=== PATIENT | female | born 1960 | race Caucasian/White ===

== ENCOUNTER 2018-02-11 06:02 | Observation (INO) | payer OTHER ==
[2018-02-11] MEDS ORDERED: LACTATED RINGERS 1,000 ML IV.SOLN IV ONE (08:48)
[2018-02-11] MEDS ORDERED: MORPHINE SULFATE 10 MG/ML VIAL ONE (08:48)
[2018-02-11] MEDS ORDERED: SUCCINYLCHOLINE CHLORIDE 20 MG/ML 10ML VIAL ONE (08:48)
[2018-02-11] MEDS ORDERED: PROPOFOL 200 MG/20 ML VIAL IV ONE (08:48)
[2018-02-11] MEDS ORDERED: ePHEDrine SULFATE 50 MG/1 ML IVP ONE (08:48)
[2018-02-11] MEDS ORDERED: FENTANYL 250MCG/5ML VIAL ONE (08:48)
[2018-02-11] MEDS ORDERED: MIDAZOLAM HCL 2 MG/2 ML VIAL ONE (08:48)
[2018-02-11] MEDS ORDERED: LIDOCAINE HCL/PF 2% 100 MG/5 ML VIAL IJ ONE (08:48)
[2018-02-11] MEDS ORDERED: ONDANSETRON HCL/PF 4 MG/ 2ML VIAL ONE (08:48)
[2018-02-11] MEDS ORDERED: ceFAZolin SODIUM 1 GM VIAL ONE (08:48)
[2018-02-11] MEDS ORDERED: MORPHINE SULFATE 4 MG/ML PREFILLED SYR IVP PRN (12:30)
[2018-02-11] MEDS ORDERED: HYDROmorphone HCL 2 MG TABLET PO PRN (12:30)
[2018-02-11] MEDS ORDERED: LEVALBUTEROL HCL 1.25 MG/3 ML AMPUL.NEB NEB PRN (12:30)
[2018-02-11] MEDS ORDERED: KETOROLAC TROMETHAMINE 30 MG/1ML VIAL IVP PRN (12:30)
[2018-02-11] MEDS ORDERED: ONDANSETRON HCL/PF 4 MG/ 2ML VIAL IVP PRN (12:30)
[2018-02-11] MEDS ORDERED: PROMETHAZINE HCL 25 MG in 0.9 % SODIUM CHLORIDE 50 ML IV PRN (12:30)
[2018-02-11] MEDS ORDERED: fentaNYL CITRATE/PF 100 MCG/ 2ML AMP IVP PRN ×2 (12:30)
[2018-02-11] MEDS ORDERED: oxyCODONE HCL 5 MG TABLET PO PRN (12:30)
[2018-02-11] MEDS ORDERED: ACETAMINOPHEN 500 MG TABLET PO PRN (12:30)
[2018-02-11] MEDS ORDERED: diphenhydrAMINE HCL 25 MG TABLET PO PRN (12:30)
[2018-02-11] MEDS ORDERED: DIAZEPAM 5 MG TABLET PO PRN (12:30)
[2018-02-11] MEDS ORDERED: NICOTINE 14mg PATCH.TD24 TD SCH (13:00)
[2018-02-11] MEDS ORDERED: LORATADINE 10 MG TABLET PO PRN (13:09)
[2018-02-11 13:16] VITALS: BMI 71.9
[2018-02-11] MEDS: 0.9 % SODIUM CHLORIDE 1,000 ML IV SCH ×2 (13:18→20:29)
--- NOTE | 2018-02-11 13:29 | History and Physical Report ---
History of Present Illnes - History of Present Illness Reason for Visit: TDR of C5/6 and C6/7 History of Present Illness: Patient is a 57-year-old white female that underwent a Cervical Total Disc Replacement of mina C5/6, mina C6/7 today. She has a history of chronic left cervical radiculopathy for more than 5 years. She has experienced headaches and daily light flashes that occurred in the corner of either eye. Patient was not reported to have any intraoperative complications. Patient is admitted for post operative care- we will get her up and walking to prevent DVT, she will use Incentive Spirometer to prevent resp. illnesses, and will advance diet as tolerated. - Past Medical History Cardiac: denies: CHF, HTN Pulmonary: Asthma, Sleep Apnea (noted during surgery) CLASSROOM MONITOR: Migraine, Seizure Gastrointestinal: denies: GI bleed, Peptic ulcer disease Heme/Onc: denies: Anemia NOS Hepatobiliary: denies: Hep A/B/C Psych: Anxiety, Depression Musculoskeletal: Other (MS/ chronic neck pain) Rheumatologic: denies: Rheumatoid arthritis Infectious Disease: Other (Hx of MRSA) ENT: denies: Sinusitis Renal/: denies: Acute renal failure Endocrine: Diabetes, obesity Dermatology: denies: Cellulitis, Psoriasis - Past Surgical History Past Surgical History: Hysterectomy, Other (Bladder mesh) - Past Family History Mother Family History: DM Father Family History: DM Sister 1 Family History: Cancer (colon) Sister 2 Family History: Cancer (Ovarian) - Past Social History Smoke: No Occupation: Disabled Alcohol: None Drugs: None Lives: With Family Domestic Violence: Negative - Health Maintenance Health Maintenance: Tetanus, Pneumococcal Vaccine (Thinks she had one). denies: Influenza Vaccine Influenza Vaccine: No Pneumonia Vaccine: Yes (Patient thinks that she has had vaccine) Resuscitation Status: Resusciation Status Resuscitation Status Full Code - Unable to Obtain History Unable to Obtain: No Review of Systems - Review of Systems Constitutional: negative: Fever, Chills Eyes: negative: pain, redness ENT: negative: Ear Pain, Ear Discharge, Throat Pain Respiratory: negative: Cough, Shortness of Breath Cardiovascular: negative: Chest Pain Gastrointestinal: negative: Nausea, Vomiting Genitourinary: negative: Dysuria Musculoskeletal: Neck Pain. negative: Arm Pain Skin: negative: Rash Neurological: negative: Change in Speech, Confusion - Medications/Allergies Allergies/Adverse Reactions: Allergies Allergy/AdvReac Type Severity Reaction Status Date / Time aripiprazole [From Abilify] Allergy Verified 02/11/18 12:23 methylprednisolone Allergy Verified 02/11/18 12:23 [From Depo-Medrol] pregabalin [From Lyrica] Allergy Verified 02/11/18 12:23 jordan Allergy Uncoded 02/11/18 12:23 Home Medications: Home Medications Albuterol Sulfate [Proair HFA] 2 inh IH Q4 PRN 02/11/18 Carbamazepine [Tegretol] 200 mg PO BID 02/11/18 Fluoxetine HCl [Prozac] 40 mg PO BID 02/11/18 Fluticasone Propionate [Flonase Nasal [place]] 1 spray NS DAILY 02/11/18 Hydrocodone Bit/Acetaminophen [Lortab] 10 mg PO 6XDAY PRN 02/11/18 Insulin Aspart [Novolog] 1 unit SQ TID 02/11/18 Insulin Glargine,Hum.rec.anlog [Lantus] 55 unit SQ DAILY 02/11/18 LORazepam [Ativan] 1 mg PO TID PRN 02/11/18 Loratadine 10 mg PO DAILY 02/11/18 Metformin HCl 1,000 mg PO BID 02/11/18 Naproxen 500 mg PO BID 02/11/18 Simvastatin 40 mg PO DAILY 02/11/18 Topiramate [Topamax] 100 mg PO BID 02/11/18 clonazePAM [Klonopin] 3 mg PO TID 02/11/18 Current Inpatient Medications: Current Inpatient Medications Acetaminophen (Tylenol Extra Strength) 500 mg PO Q4 PRN PRN Reason: for mild pain 1-4/fever Carbamazepine (Tegretol) 200 mg PO BID LANNY Diazepam (Valium) 5 mg PO Q8H PRN PRN Reason: Anxiety/muscle spasm Diphenhydramine HCl (Benadryl) 25 mg PO Q4 PRN PRN Reason: Itching or Pruritis Fentanyl Citrate (Duragesic) 50 mcg IVP Q2H PRN PRN Reason: Moderate pain 5-7 Stop: 02/12/18 12:29 Fentanyl Citrate (Duragesic) 100 mcg IVP Q2H PRN PRN Reason: For Severe Pain 8-10 Stop: 02/12/18 12:29 Fluoxetine HCl (Prozac) 40 mg PO BID LANNY Heparin Sodium (Porcine) (Heparin) 5,000 unit SQ Q12 [facility] Hydromorphone HCl (Dilaudid) 4 mg PO Q4H PRN PRN Reason: Severe Pain 8-10 Stop: 02/12/18 12:29 Sodium Chloride (Normal Saline) 1,000 mls @ 150 mls/hr IV Q10H LANNY Stop: 02/12/18 12:29 Promethazine HCl 25 mg/ Sodium (Chloride) 51 mls @ 200 mls/hr IV Q6 PRN PRN Reason: Nausea / Vomiting Stop: 02/15/18 12:29 Insulin Detemir (Levemir Flex-Pen) 55 unit SQ HS [facility] Insulin Human Regular (Humulin R) 0 unit SQ CHEMQID [facility]; Protocol Ketorolac Tromethamine (Toradol) 15 mg IVP Q6 PRN PRN Reason: For Mild Pain 1-4 Stop: 02/15/18 12:29 Levalbuterol HCl (Xopenex) 1.25 mg NEB Q4 PRN PRN Reason: SOA, Dyspnea, or Wheezing Stop: 02/15/18 12:29 Loratadine (Claritin) 10 mg PO DAILY PRN PRN Reason: Allergy Symptoms Metformin HCl (Glucophage) 1,000 [place] [id number] [facility] Miscellaneous (Chem Sticks) 1 each MC Q6H [facility] Morphine Sulfate (Depodur) 4 mg IVP Q2 PRN PRN Reason: For Severe Pain 8-10 Stop: 02/12/18 12:29 Nicotine (Habitrol 14mg) 1 patch TD DAILY [facility] Ondansetron HCl (Zofran 4 Mg/2 Ml) 4 mg IVP Q6H PRN PRN Reason: Nausea / Vomiting Stop: 02/15/18 12:29 Oxycodone HCl (Percolone) 10 mg PO Q4 PRN PRN Reason: For Moderate Pain 5-7 Oxycodone/Acetaminophen (Percocet 5-325 Mg Tablet) 1 each PO Q4 PRN PRN Reason: For pain 1-4 out of 10 Oxycodone/Acetaminophen (Percocet 5-325 Mg Tablet) 2 each PO Q4 PRN PRN Reason: Moderate pain 5-7 Simvastatin (Zocor) 40 mg PO HS [facility] Topiramate (Topamax) 100 mg PO BID [facility] Exam - Exam Vital Signs: Vital Signs (72 hours) 02/11/18 12:28 Temperature 96.3 F L Pulse Rate [ 108 H Apical] Respiratory 20 Rate Blood Pressure 142/74 [Left Arm] O2 Sat by Pulse 90 L Oximetry General: Alert, Oriented to Person, Oriented to Place, Oriented to Time, Cooperative, No acute distress HEENT: Atraumatic, PERRLA, Mouth Mucous membr. moist/[place] Neck: Other (s/p TDR of C 5/6 & C6/7- C collar on (soft)). No: Normal Range of Motion Lungs: Clear to auscultation, Normal air movement, Speaks full Sentences Cardiovascular: Regular rate, Normal S1, Normal S2 Peripheral Pulses: 2+ radial 2+ pedal Abdomen: Normal bowel sounds, Soft, No tenderness Integumentary: Normal, Warm, Dry, Other (incision to anterior neck) Extremities: No cyanosis, Normal pulses, No tenderness/swelling Neurological: Normal speech, Strength Equal Bilat, Sensation intact Psych/Mental Status: Appropriate Affect Assessment/Plan - Assessment/Plan (1) Status post cervical disc replacement Status: Acute Current Visit: Yes Assessment: Patient has dressing to the anterior neck with support of C- Collar Patient is able to speak a short full sentence- no difficulty swallowing Patient has strong equal manager radiation Patient able to move both lower extremities Plan: Patient is to wear C-collar when she is up and about (per Dr. 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 Diabetes mellitus complication status: without complication Qualified Code(s): E11.9 - Type 2 diabetes mellitus without complications Assessment: Patient has not shown any sx's of hypo/hyperglycemic episode- we will monitor blood sugars Plan: Will monitor blood sugars every 6 hours Patient will be on sliding scale insulin- will continue with long acting insulin and monitor blood sugars (3) Asthma Status: Acute Current Visit: Yes Qualifiers: Asthma severity: mild Asthma persistence: intermittent Asthma complication type: unspecified Qualified Code(s): J45.20 - Mild intermittent asthma, uncomplicated Assessment: Patient is no acute distress, respirations are regular, even, unlabored. Lungs are clear. Plan: Will monitor patient resp. status by checking pulse ox, getting patient up and walking, and using IS. Xopenox and oxygen are ordered. VTE Assessment - RISK FACTOR SCORE VTE RISK FACTOR SCORES: AGE 40-60 YEARS, MAJOR SURGERY/ANESTHESIA TIME > 1 HOUR (pt on heparin)
[2018-02-11] MEDS: oxyCODONE/ACETAMINOPHEN 5/325 TABLET PO PRN ×2 (15:41→21:31)
[2018-02-11] MEDS: INSULIN REGULAR, HUMAN 100 UNIT/ML 3ML VIAL SQ SCH ×2 (16:36→21:30)
[2018-02-11] MEDS ORDERED: INSULIN DETEMIR 100 UNIT/ML 3ML PEN.INJCTR SQ SCH ×2 (21:00)
[2018-02-11] MEDS ORDERED: INSULIN GLARGINE,HUM.REC.ANLOG 100 UNIT/ML PEN.INJCTR SQ SCH (21:00)
[2018-02-11] MEDS ORDERED: SIMVASTATIN 40 MG TABLET PO SCH (21:00)
[2018-02-11] MEDS: HEPARIN SODIUM 5000 UNIT/1 ML SQ SCH (21:30)
[2018-02-11] MEDS: FLUoxetine HCL 10 MG CAPSULE PO SCH (21:31)
[2018-02-11] MEDS: CARBAMAZEPINE 200 MG TABLET PO SCH (21:31)
[2018-02-11] MEDS: TOPIRAMATE 50 MG TABLET PO SCH (21:31)
[2018-02-12] MEDS: oxyCODONE/ACETAMINOPHEN 5/325 TABLET PO PRN ×3 (01:21→09:51)
--- NOTE | 2018-02-12 07:34 | Discharge Summary ---
Discharge Summary - Discharge Sumary History of Present Illness: Reason for Visit: TDR of 5/6 and C6/7 History of Present Illness: Patient is a 57-year-old white female that underwent a Cervical Total Disc Replacement of mina C5/6, mina C6/7 today. She has a history of chronic left cervical radiculopathy for more than 5 years. She has experienced headaches and daily light flashes that occurred in the corner of either eye. Patient was not reported to have any intraoperative complications. Patient is admitted for post operative care- we will get her up and walking to prevent DVT, she will use Incentive Spirometer to prevent resp. illnesses, and will advance diet as tolerated. Condition at Discharge: Stable Home Medications: Ambulatory Orders Medication Instructions Recorded Albuterol Sulfate [Proair HFA] 2 inh IH Q4 PRN 02/11/18 Carbamazepine [Tegretol] 200 mg PO BID 02/11/18 Fluoxetine HCl [Prozac] 40 mg PO BID 02/11/18 Fluticasone Propionate [Flonase 1 spray NS DAILY 02/11/18 Nasal [employer]] Hydrocodone Bit/Acetaminophen 10 mg PO 6XDAY PRN 02/11/18 [Lortab] Insulin Aspart [Novolog] 1 unit SQ TID 02/11/18 Insulin Glargine,Hum.rec.anlog 55 unit SQ DAILY 02/11/18 [Lantus] LORazepam [Ativan] 1 mg PO TID PRN 02/11/18 Loratadine 10 mg PO DAILY 02/11/18 Metformin HCl 1,000 mg PO BID 02/11/18 Naproxen 500 mg PO BID 02/11/18 Simvastatin 40 mg PO DAILY 02/11/18 Topiramate [Topamax] 100 mg PO BID 02/11/18 clonazePAM [Klonopin] 3 mg PO TID 02/11/18 Oxycodone HCl/Acetaminophen 1 - 2 each PO Q4-6 PRN #84 tablet 02/12/18 [Percocet 7.5/325] Consultations this Visit: None Procedures this Visit: Other (Surgical) Allergies/Adverse Reactions: Allergies Allergy/AdvReac Type Severity Reaction Status Date / Time aripiprazole [From Abilify] Allergy Verified 02/11/18 12:23 methylprednisolone Allergy Verified 02/11/18 12:23 [From Depo-Medrol] pregabalin [From Lyrica] Allergy Verified 02/11/18 12:23 jordan Allergy Uncoded 02/11/18 12:23 Patient Problems: Current Active Problems Problem Status Onset Asthma Acute Diabetes type 2, controlled Acute Status post cervical disc replacement Acute Discharge Summary: 57-year-old white female that underwent a Cervical Total Disc Replacement of mina C5/6, mina C6/7 today. She has a history of chronic left cervical radiculopathy for more than 5 years. She has experienced headaches and daily light flashes that occurred in the corner of either eye. Patient was not reported to have any intraoperative complications. She will be discharged to home today with family. Patient states that she had a really good night- ambulated multiple times, tolerating diet, denies any neurological/neurovascular deficits. She feels that her pain is controlled. Patient will go home with a script for percocet by Dr. Vences- she is to wear c-collar when she is outside the home for safety. She is to keep follow up appointment with Dr. Vences on . She will be given copy of post op discharge instructions. - Final Diagnosis (1) Status post cervical disc replacement Right or Left: Right (2) Diabetes type 2, controlled Right or Left: Right (3) Asthma Right or Left: Right
[2018-02-12] MEDS: INSULIN REGULAR, HUMAN 100 UNIT/ML 3ML VIAL SQ SCH (07:46)
[2018-02-12 08:01] LABS: BASOPHILS % 0.3 (0.0-1.5); EOSINOPHILS % 2.5 % (0.0-6.8); MEAN CORPUSCULAR HEMOGLOBIN 29.2 pg (28.0-34.0); NEUTROPHILS # 4.8 # k/uL (1.4-7.7); eGFR (Non-African) > 60
[2018-02-12] MEDS: FLUoxetine HCL 10 MG CAPSULE PO SCH (08:53)
[2018-02-12] MEDS: CARBAMAZEPINE 200 MG TABLET PO SCH (08:53)
[2018-02-12] MEDS: TOPIRAMATE 50 MG TABLET PO SCH (08:53)
[2018-02-12] MEDS: HEPARIN SODIUM 5000 UNIT/1 ML SQ SCH (08:54)
[2018-02-12 09:46] VITALS: BP 145/79
== END 2018-02-12 09:55 | disposition home or self-care (01) ==
LOC: OPSURG 06:02 → SOUTH 12:09 → INTOOBSV 12:09
PROVIDERS: ADMIT Family Medicine; ATTEND Family Medicine
DX: M50.223 Other cervical disc displacement at C6-C7 level (principal); M48.02 Spinal stenosis, cervical region; M50.123 Cervical disc disorder at C6-C7 level with radiculopathy; E11.9 Type 2 diabetes mellitus without complications; J45.909 Unspecified asthma, uncomplicated
CPT/HCPCS: 80048; 85025; 97116; 97535; A9270; G0378; J1644; J1815; J1885; J3490; J7030; 22856; 22858; 99217; 99218; J0330; J0690; J2001; J2250; J2270; J2405; J2704; J7120; L0120